=== PATIENT | male | born 1980 | race African-American/Black ===

== ENCOUNTER 2020-05-20 23:17 | Emergency (ER) | payer BC, OTHER ==
[~2020-05-20] VITALS: Ht 182.9 cm; Wt 83.9 kg
[~2020-05-20 23:17] MED LIST: HYDROCODONE-APA1 TA1 PO; VENTOLIN HFA 1818 GM INH
[2020-05-21] MEDS ORDERED: ERYTHROMYCIN E3.5 G2 OPHTHALMIC (04:43)
[2020-05-21 05:05] VITALS: BP 131/85
== END 2020-05-21 05:06 | disposition home or self-care (01) ==
LOC: ER 23:17
DX: H57.89 Other specified disorders of eye and adnexa (principal); T65.891A Toxic effect of other specified substances, accidental (unintentional), initial encounter; F17.210 Nicotine dependence, cigarettes, uncomplicated; Z79.899 Other long term (current) drug therapy; Y92.89 Other specified places as the place of occurrence of the external cause